=== PATIENT | female | born 1990 | race Caucasian/White ===

== ENCOUNTER 2016-12-18 16:50 | Inpatient (IN) | payer OTHER ==
[~2016-12-18] VITALS: Ht 152.4 cm; Wt 104.3 kg
[2016-12-18 18:07] LABS: ABSOLUTE BASOPHIL COUNT 0 /CUMM (0.0-0.2); ABSOLUTE EOSINOPHIL COUNT 0.3 /CUMM (0.0-0.7); ABSOLUTE GRANULOCYTE CT 7.3 /CUMM (1.4-6.5); ABSOLUTE LYMPH COUNT 1.5 /CUMM (1.2-3.4); ABSOLUTE MONOCYTE COUNT 0.8 /CUMM (0.10-0.60); BASOPHIL % 0.2 % (0.0-2.0); EOSINOPHIL % 2.7 % (0-5); GRANULOCYTE % 73.4 % (42.2-75.2); MEAN CORPUSCULAR HGB 27.3 PG (27.0-31.0); MEAN CORPUSCULAR HGB CONC 33.1 G/DL (33.0-37.0); MEAN CORPUSCULAR VOLUME 82.4 FL (81.0-99.0); MEAN PLATELET VOLUME 12.7 FL (7.4-10.4); PLATELET COUNT 139 /CUMM (130-400); RBC DISTRIBUTION WIDTH 16.1 % (11.5-14.5); RED BLOOD CELL CT 4.01 /CUMM (4.20-5.40); WHITE BLOOD CELL COUNT 9.9 /CUMM (4.8-10.8)
[2016-12-18] MEDS ORDERED: PRENATAL MULTI1 EAC2 PO (18:45)
[2016-12-18] MEDS ORDERED: ZOLOFT100 M1 PO (18:47)
[2016-12-18] MEDS ORDERED: SYNTHROID75 MCG PO (18:47)
[2016-12-18] MEDS ORDERED: CLARITIN10 M1 PO (18:48)
--- NOTE | 2016-12-18 19:57 | History & Physical ---
General Information and HPI MD Statement: I have seen and personally examined LUCRETIA ALEXANDRE and documented this H&P. The patient is a 26 year old female at [39] weeks and [6/7] days gestation who presented with a chief complaint of SROM TODAY @ 15:30 [.]. Source of Information: patient, old records Exam Limitations: no limitations History of Present Illness: 26-year-old with an MEGHANA by first trimester ultrasound of 12/19/2016 presents on 12/18/2016 at 39 weeks 6/7 days with the complaint of likely SROM. She was evaluated childbirth center temperature was positive. Patient was admitted for induction of labor. Issues for this #1 history of asthma. Inhaler #2 history of hypothyroidism. TFTs were normal #3 history of depression and anxiety patient initially was on Zoloft 150 mg she' s now tapered down to 100 daily. During this echo 1 anatomy at the ATU within normal limits. #4 subchorionic hemorrhage that resolved #5 history of MRSA in the past. Patient underwent 3 sets of cultures initially on 09/29/2016 the original site of the MRSA was her face followed by nasal and axillary inquiring cultures. On 2 separate other dates nasal and axillary and groin cultures were also negative. For total of 7 negative cultures #6 High Maternal BMI initial bmi 38 @ term wt 239 BMI 46.7 shoulder screen was neg @ 36 wks - but calculated today (using EFWT 0f 7#11oz @ 39 3/7 wks) shows intermediate risk for shoulder dystocia PT R Calc RISK AVGE POP CALC RISK shoulder dystocia w/ permanent neuro deficit 07/7380 shoulder dystocia w/ brachial plexus injury any duration 07/1017 she has a proven pelvis for 6#13 OZ (similar maternal BMI) no problem w/ delivery of shoulders we discussed her 2 options 1.) elective c/s vs 2.) attempted vaginal delivery. Pro's/Con's of both deliveries discussed. Pt states the prior suggested her baby would weigh more than her 6#13, Patient believes this baby is not significantly larger than her 1st baby. She is willing to try to deliver vaginally despite the shoulder screen that suggests intermediate risk of the shoulder dystocia. 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 Last Menstrual Period: Estimated Delivery Date: 12/19/2016 Past aircraft engine mechanic History: non-contributory Past Pregnancies Past Pregnancies: Date of Delivery: 10/31/2012 Gestational Age: 40 wk Length of Labor: 12 Weight: 6#13 Type of Delivery: vaginal Anesthesia: epidural Complications: none Medical History Blood Transfusion Hx: No Neurological: NONE EENT: allergies Cardiovascular: NONE Respiratory: NONE Gastrointestinal: NONE Hepatic: NONE Renal: NONE Musculoskeletal: NONE Psychiatric: anxiety, depression Endocrine: NONE Blood Disorders: NONE Cancer(s): NONE PRODUCT OWNER/Reproductive: NONE Surgical History Pertinent Surgical History: none (3), age 11 nasal cautery 06/2015 deviated septum surgery Past Family/Social History Psychosocial History Where do you live? Home Who Do You Live With? spouse, child, self Primary Language: Polish Smoking Status: Never Smoked ETOH Use: denies use Illicit Drug Use: denies illicit drug use Review of Systems Review of Systems: Nge for Cardiac Pulmonry GI complaints Exam & Diagnostic Data Last 24 Hrs of Vital Signs/I&O Aferbile BP 124/72 R 16 PO2 99% RA Obstetric Exam Wgt Gained During : 50 Pelvimetry: proven 6#13 Dilation (cm): 2 Effacement (%): 30 Station: -1 Membranes: SROM Fluid: clear Fundal Height (cm): 38 Multiple Gestation? No Contractions: irreg Infant #1 - FHR Baseline: 130 Category: 1 Estimated Weight: 7#11 Presentation: vtx Patient for Induction? Yes Richards Score Richards Score Response Value Cervix Position: mid-position 1 Cervix Consistency: soft 2 Cervix Effacement: 30-50% 1 Cervix Dilation: 1-2 cm 1 Cervix Station: -1 2 Total 7 Physical Exam General Appearance Alert, Oriented X3, Cooperative, No Acute Distress Skin No Significant Lesion Cardiovascular Regular Rate Lungs Normal Air Movement Abdomen Normal Bowel Sounds, Soft, No Tenderness, No Hepatospenomegaly, Uterine fundus 39 cm E F WT 7# 11 oz VTX, irreg contxns uterus nontender Neurological Normal Gait, Normal Speech Extremities No Tenderness/Swelling Reproductive (FEMALE) Normal female genitalia Labs Blood Type & Rh: B+ Antibody Screen: N Hct/Hgb & Platelets #1: 11.8/36.8 226,000 Hct/Hgb & Platelets #2: 11.2/37 167,000 Rubella: IMMUNE VDRL #1: N VDRL #2: N HbsAg: N HIV #1: N HIV #2 N 1 Hr P 3 Hr PG: N/A Group B Strep: N Initial Ultrasound: 05/28/2016 10 3/7 WKS - MEGHANA 12/19/2016 Anatomy Ultrasound: 08/03/2016 NL ANATOMY NL OVARIES Ultrasound for EFW: 12/08/2016 38 3/7 WKS E F WT 7#11oz Genetic Testing: NL 1ST TRIM SCREEN NL MAT T 21 NEG FOR NTD CF NEG Last 24 Hrs of Labs/Serge: Laboratory Tests 12/18/16 1740: CBC w Diff NO MAN DIFF REQ, RBC 4.01 L, MCV 82.4, MCH 27.3, RDW 16.1 H, MPV 12.7 H, Gran % 73.4, Lymphocytes % 15.5 L, Monocytes % 8.2, Eosinophils % 2.7, Basophils % 0.2, Absolute Granulocytes 7.3 H, Absolute Lymphocytes 1.5, Absolute Monocytes 0.8 H, Absolute Eosinophils 0.3, Absolute Basophils 0, PUBS MCHC 33.1 12/18/16 1708: Membrane Rupture POSITIVE, Urinalysis HEAVY H, Urine Color YEL, Urine Clarity CLDY H, Urine pH 7.5, Ur Specific [place] 1.015, Urine Protein 100 H, Urine Ketones NEG, Urine Nitrite NEG, Urine Bilirubin NEG, Urine Urobilinogen 0.2, Ur Leukocyte Esterase TRACE H, Ur Microscopic SEDIMENT EXAMINED, Urine RBC 5-10 H, Urine WBC 15-25 H, Ur Epithelial Cells MANY H, Urine Bacteria MANY H , Urine Hemoglobin MOD H, Urine Glucose NEG Assessment/Plan Assessment/Plan: IUP @ 39 6/7 WKS W/ SROM HI MAT BMI, PROVEN PELVIS FOR 6#13oz @ SIMILAR MATERNAL BMI NEG GEST DM SHOULDER SCREEN CALCULATED "INTERMEDIATE RISK" FOR POSSIBLE SHOULDER DYSTOCIA PT AND UNDERSTAND RISK, LIMITATIONS OF U/S - BABY MAY BE EITHER BIGGER OR SMALLER AND THE U/S CALCULATED EST F WT. HER "GUT FEELING" IS THAT THIS BABY IS A SIMILAR SIZE TO HER PREVIOUS CHILD, AND THAT DELIVERY DID NOT HAVE ANY PROBLEM WITH DELIVERY OF THE INFANT'S SHOULDERS. PT AND DECLINE THE OFFER FOR ELECTIVE C/S AND WISH TO TRY TO DELIVER VAGINALLY. NURSING STAFF AWARE AND SUPPORTIVE OF THE CLINICAL PLAN PLAN ADMIT IVF PITOCIN INDUCTION FOLLOW CAREFULLY BE PREPARED W/ ADEQUATE STAFF @ DELIVERY NO VACUUM IF PROLONGED 2ND STAGE ALPS IN LABOR Goldie RUSSO As Ranked By This Provider Problem List: 1. 2. BMI 45.0-49.9, adult 3. SROM (spontaneous rupture of membranes) Core Measures/Miscellaneous Venous Thromboembolism VTE Risk Factors: Obesity, / VTE Contraindications: Active Bleeding (FALL RISK) VTE Diagnosis: No Beta Itz Is Beta Itz a Home Med? No If No, Why Not? N/A Antibiotics Is Patient on Antibiotics? No Attending MD Review Statement Attending Statement Attending MD Statement: examined this patient, discussed with family, reviewed EMR data (avail), discussed w/nursing Attending Assessment/Plan: Goldie RUSSO MD
--- NOTE | 2016-12-18 22:36 | PN- OBGYN ---
Surgical Brief Attending Note Brief Attending Note: called to see pt 5 to 6 min prolonged decell down to the 60's - several variable decells before hand. recovery to NL FHR baseline with avge variabiity and accells. no tachysystole, NL Mat BP, raheem of cx: 3 to4 cm 80% ,- 2 station. ?? drop in FHR related to lauren amniotic fluid due to prior SROM plan attempt amnioinfusion discussed with pt and who agree. flori Casanova MD
--- NOTE | 2016-12-19 10:16 | PN- OBGYN ---
Surgical Brief Attending Note Brief Attending Note: OVERNIGHT FHR IMPROVED AFTER THE AMNIOINFUSION. @ 04:30 had recurrent prolonged unassociated decells. second amnioinfusion improved the FHR tracing No recurrent decells after the 2nd amnioinfusion @ 7:00 raheem cx now more 8-9 cm w/ swollen ant lip PT advised for C/S delivery Pt and agree Goldie Casanova MD
--- NOTE | 2016-12-19 10:32 | Operative Report ---
Operative/Inv Procedure Report Surgery Date: 12/19/16 Name of Procedure: Primary low cervical transverse section Pre-Operative Diagnosis: High maternal BMI of 46, arrest of dilation, borderline shoulder screen Post-Operative Diagnosis: Same, macrosomic 8 lbs. 8 oz., deflexed occiput posterior, occult cord prolapse, nuchal cord 1 Estimated Blood Loss: scant (550 ML) Surgeon/Taping Supervisor: KARAN MONTERROSO,PAYTON Hodges surgical physician assistant Poncho Vega MD Anesthesia: epidural Monitors: Blood pressure cuff EKG electrodes pulse oximeter IV Fluids: 850 ML crystalloid Urine Output: 300 ML Drains: [place] Specimens: None Complications: None Condition: Good Operative Indication: Arrest of dilation, maternal BMI of 46 Operative/Procedure Note Note: Patient was brought to the operating room and placed on the OR table in dorsal supine position with a right hip wedge. Time was discussed by the team and agreed upon. Due to the patient's cervix for an allergy she was given IV gentamicin and clindamycin preoperatively. heart rate was 140s in the OR without deceleration. In labor at the [place] catheter and pneumatic compression boots at [place] placed on the patient. Epidural was topped up by anesthesia and patient was then prepped and draped in usual sterile fashion. After evidence of an adequate epidural block, transverse incision was made in the skin 2 fingerbreadths above the symphysis. Transverse incision carried down the fascia. Fascia incised transversely. Fascia sharply divided in the midline. Rectus muscles identified divided in the midline and manually . The parietal peritoneum was identified elevated and entered bluntly. This was divided transversely. The utero vesicular fold of the bladder peritoneum was identified and divided transversely. The bladder was reflected inferiorly. Transverse incision was made in the low uterine segment, the uterine cavity was entered bluntly. Uterine incision was extended the right left sides manually. Once the uterine incision was opened occult loop of cord prolapse of the uterine incision and could not be easily reduced. Hand was introduced into the uterine cavity and a deflexed occiput posterior presentation of the male infant was carefully flexed and the 's head was brought to the abdominal wall incision. Mouth and nasopharynx bulb suctioned on the intra-abdominal wall, nuchal cord 1 was easily reduced, and the rest of the 's body was delivered without complication at 08:00 on 12/19/2016. Umbilical cord was doubly clamped cut and the infant was handed to the pediatric team for evaluation. Live viable male infant 8 lbs. 8 oz. Apgars 9, 9, and 9. Cord pH was 7.21. Placenta was initially spontaneously and then manually removed from the uterine cavity. Normal configuration of the placenta normal 3 vessel cord. Uterus was exteriorized draped with wet lap pad. Uterine cavity wiped clean with a lap pad. The uterine incision was inspected and found to be without significant low cervical extension. Uterine incision was closed then with 2 separate segments of suture. First segment of sutures running locking. Second segment of suture was running imbricating suture. At completion of the uterine closure there was good hemostasis. Normal anatomic configuration of the uterus fallopian tubes and ovaries. The pelvis was then irrigated and the irrigation fluid was aspirated. Good hemostasis continued. Parietal peritoneum was closed with running suture. Muscle layer inspected found to be dry. Muscles reapproximated midline with horizontal mattress suture. Fascia inspected found to be dry fascia closed with 2 separate segments running intermittently locking suture. Subcutaneous tissue was irrigated and the irrigation fluid was aspirated. Subcutaneous tissue was closed plain gut. Any small bleeders were managed with unipolar cautery before closure. Skin edges were then reapproximated with subcuticular stitch of by us in. Completion procedure sponge needle and spent counseling were correct 4. Pressure dressing was applied to the intra-abdominal wall. Bimanual exam shows a small portion, 3 x 4 cm, of amniotic membrane noted in the upper vaginal vault. There was no retained tissue in the low segment and no significant blood or clot in the low segment or upper vaginal vault. There was excellent hemostasis also in the vaginal area at end of procedure. Findings: With opening of the uterus, there was a loop of cord that prolapsed to the uterine wall incision. There was also a loose nuchal cord 1. was positioned in a deflexed occiput posterior presentation. Time of delivery was 08:00 on 12/19/2016. weight of a live viable male infant 8 lbs. 8 oz. Apgars 9, 9, and 9 cord pH was 7.21. Normal placenta 3 vessel cord. Normal uterus tubes and ovaries Discharge Disposition: CC: KARAN MONTERROSO,PAYTON Hodges
--- NOTE | 2016-12-19 10:33 | Labor & Delivery Summary ---
Delivery Summary Section: Section: primary Indication: Progressive dilation, maternal BMI of 46 intermediate shoulder dystocia screen risk Anesthesia: Epidural Episiotomy/Lacerations: Episiotomy/Lacerations: none Placenta: Placenta: spontanteous, normal, 3 vessel, occult cord prolapse noted upon entry into the uterine cavity, also loose nuchal cord 1 Anesthesia: epidural Cord PH Value: 7.21 Baby's Weight: Live viable male infant 8 lbs. 8 oz. Apgars - 1 Min: 9 Apgars - 5 Min: 9
[2016-12-20 10:11] LABS: ABSOLUTE BASOPHIL COUNT 0 /CUMM (0.0-0.2); ABSOLUTE EOSINOPHIL COUNT 0.1 /CUMM (0.0-0.7); ABSOLUTE GRANULOCYTE CT 13.6 /CUMM (1.4-6.5); ABSOLUTE LYMPH COUNT 1.2 /CUMM (1.2-3.4); BASOPHIL % 0.2 % (0.0-2.0); EOSINOPHIL % 0.9 % (0-5); GRANULOCYTE % 85.5 % (42.2-75.2); HEMATOCRIT 29.7 % (37-47); MEAN CORPUSCULAR HGB 27.1 PG (27.0-31.0); MEAN CORPUSCULAR HGB CONC 32.5 G/DL (33.0-37.0); MEAN CORPUSCULAR VOLUME 83.4 FL (81.0-99.0); MEAN PLATELET VOLUME 11.7 FL (7.4-10.4); PLATELET COUNT 120 /CUMM (130-400); RBC DISTRIBUTION WIDTH 16.2 % (11.5-14.5); RED BLOOD CELL CT 3.57 /CUMM (4.20-5.40)
[2016-12-20 10:26] LABS: WHITE BLOOD CELL COUNT 15.9 /CUMM (4.8-10.8)
--- NOTE | 2016-12-20 16:22 | PN- Post Delivery/GYN ---
Subjective Subjective: RESTING QUIETLY- PAIN CONTROLLED BY PO PAIN MEDS, TOLERATING A REGULAR DIET Review of Systems: NO CARDIAC PULMONARY GI COMPLAINTS Objective Last 24 Hrs of Vital Signs/I&O AFEBRILE VSS Vital Signs Date Time Temp Pulse Resp B/P B/P Pulse O2 O2 Flow FiO2 Mean Ox Delivery Rate 12/19 2142 98 Room Air Room Air Physical Exam General Appearance Alert, Oriented X3, Cooperative, No Acute Distress Skin No Significant Lesion Cardiovascular Regular Rate Lungs Normal Air Movement Abdomen Normal Bowel Sounds, Soft, No Tenderness, No Hepatospenomegaly, UTERINE FUNDUS FIRM NONTENDER MIDLINE, 2 FB BELOW UMBILICUS INCISION CLEAN DRY INTACT Neurological Normal Gait, Normal Speech Extremities No Tenderness/Swelling Pelvic (FEMALE) Appearance Normal, AVGE LOCHIA Current Medications: Current Medications Sig/Consuelo Start time Last Medication Dose Route Stop Time Status Admin Acetaminophen 1,000 MG Q6P PRN 12/19 0830 AC N/A 1 UNIT IV Albuterol Sulfate 3 ML Q4P PRN 12/19 214 AC 12/19 INH 2141 Albuterol Sulfate 2 PUF Q4 PRN 12/19 2100 AC INH Diphenhydramine HCl 25 MG Q6P PRN 12/19 0945 AC IV Docusate Sodium 100 MG AT BEDTIME PRN 12/19 0815 AC PO Enoxaparin Sodium 50 MG DAILY@12/19 AC 12/19 SC 2029 Hydroxyzine HCl 100 MG AT BEDTIME NEED.. 12/20 0000 AC PO Ibuprofen 800 MG Q6P PRN 12/19 0915 AC 12/20 PO 1429 Ketorolac 30 MG .STK-MED ONE 12/20 0232 DC Tromethamine IM 12/20 0233 Ketorolac 30 MG Q6P PRN 12/19 0945 DC 12/19 Tromethamine IV 12/20 0944 2030 Ketorolac 30 MG Q6H 12/19 0800 DC 12/20 Tromethamine IV 12/20 0201 0230 Lactated Ringer's 1,000 ML Q8H 12/19 0915 DC 12/19 IV 1642 Levothyroxine Sodium 0.075 MG DAILY AC 12/20 0700 AC 12/20 PO 0615 Loratadine 10 MG DAILY 12/19 2199 DC PO Loratadine 10 MG DAILY 12/19 2199 AC 12/19 PO 2247 Magnesium Hydroxide 30 ML DAILY NEEDED PRN 12/19 914 AC PO Metoclopramide HCl 10 MG Q6P PRN 12/19 944 AC IV Naloxone HCl 0.2 MG DAILY PRN 12/19 944 AC IV Oxycodone/ 1 TAB Q4P PRN 12/19 914 AC Acetaminophen PO Oxycodone/ 2 TAB Q4P PRN 12/19 914 AC Acetaminophen PO Oxytocin 20 UNITS Q8H 12/19 914 DC 12/19 Lactated Ringer's 1,000 ML IV 12/19 1714 0900 Sertraline HCl 100 MG DAILY 12/19 2199 DC PO Sertraline HCl 100 MG DAILY 12/19 2199 AC 12/19 PO 224 Last 24 Hrs of Labs/Serge: Laboratory Tests 12/20/16814: CBC w Diff MAN DIFF ORDERED, RBC 3.57 L, MCV 83.4, MCH 27.1, RDW 16.2 H, MPV 11.7 H, Gran % 85.5 H, Lymphocytes % 7.3 L, Monocytes % 6.1, Eosinophils % 0.9, Basophils % 0.2, Absolute Granulocytes 13.6 H, Absolute Lymphocytes 1.2, Absolute Eosinophils 0.1, Absolute Basophils 0, Platelet Estimate DECREASED, Anisocytosis 1+, PUBS MCHC 32.5 L Assessment/Plan Assessment/Plan STABLE POD#1 INTERESTED IN CIRC FOR HER SON TOMORROW REG DIET PO PAIN MEDS FULL AMBULATION Problem List: 1. BMI 45.0-49.9, adult 2. SROM (spontaneous rupture of membranes) 3. Arrest of dilation, delivered, current hospitalization 4. Delivered by section 5. Term of male 6. Anemia due to blood loss, acute Attending MD Review Statement Attending Statement Attending MD Statement: examined this patient, discussed with family, reviewed EMR data (avail), discussed with nursing Attending Assessment/Plan: Goldie RUSSO MD
--- NOTE | 2016-12-21 08:35 | PN- OBGYN ---
Surgical Brief Attending Note Brief Attending Note: NO COMPLAINTS. DOING WELL. AMBULATING , VOIDING, TOLERATING PAIN AND PO. NL LOCHIA. +NURSING VSSAF FF@U INC: C/D/I EXT: NO CALF TENDERNESS, 2+ PEDAL EDEMA B/L Laboratory Tests 12/20/16 0815: CBC w Diff MAN DIFF ORDERED, RBC 3.57 L, MCV 83.4, MCH 27.1, RDW 16.2 H, MPV 11.7 H, Gran % 85.5 H, Lymphocytes % 7.3 L, Monocytes % 6.1, Eosinophils % 0.9, Basophils % 0.2, Absolute Granulocytes 13.6 H, Absolute Lymphocytes 1.2, Absolute Eosinophils 0.1, Absolute Basophils 0, Platelet Estimate DECREASED, Anisocytosis 1+, PUBS MCHC 32.5 L 12/18/16 1740: CBC w Diff NO MAN DIFF REQ, RBC 4.01 L, MCV 82.4, MCH 27.3, RDW 16.1 H, MPV 12.7 H, Gran % 73.4, Lymphocytes % 15.5 L, Monocytes % 8.2, Eosinophils % 2.7, Basophils % 0.2, Absolute Granulocytes 7.3 H, Absolute Lymphocytes 1.5, Absolute Monocytes 0.8 H, Absolute Eosinophils 0.3, Absolute Basophils 0, PUBS MCHC 33.1 12/18/16 1708: Membrane Rupture POSITIVE, Urinalysis HEAVY H, Urine Color YEL, Urine Clarity CLDY H, Urine pH 7.5, Ur Specific [place] 1.015, Urine Protein 100 H, Urine Ketones NEG, Urine Nitrite NEG, Urine Bilirubin NEG, Urine Urobilinogen 0.2, Ur Leukocyte Esterase TRACE H, Ur Microscopic SEDIMENT EXAMINED, Urine RBC 5-10 H, Urine WBC 15-25 H, Ur Epithelial Cells MANY H, Urine Bacteria MANY H , Urine Hemoglobin MOD H, Urine Glucose NEG Microbiology 12/19 0642 URINE ROUT: Urine Culture - CAN Cancelled: Cancelled via OE: STAT A/P POD 2. S/P PRIMARY LTCS FOR ARREST OF DILATION/OP. PLAN ROUTINE POSTOP CARE. DESIRES CIRC. MOTHER COUNSELED. MILD ANEMIA. WILL REPLACE UPON DISCHARGE.
[2016-12-22] MEDS ORDERED: IBUPROFEN800 M1 PO (09:51)
[2016-12-22] MEDS ORDERED: PERCOCET 5-3251 EACH PO (09:51)
--- NOTE | 2016-12-22 09:56 | PN- Post Delivery/GYN ---
Subjective Subjective: doing well Review of Systems Constitutional: Denies: chills, fever. Respiratory: Denies: cough. Neurological/Psychological: Denies: anxiety, depressed. Objective Last 24 Hrs of Vital Signs/I&O vss Physical Exam General Appearance Alert, Oriented X3, Cooperative, No Acute Distress Cardiovascular Regular Rate Lungs Clear to Auscultation Abdomen Soft, No Tenderness, fundus firm, incision clean and dry Neurological Reflexes 2+ Pelvic (FEMALE) locia sero sanganous Current Medications: Current Medications Sig/Consuelo Start time Last Medication Dose Route Stop Time Status Admin Acetaminophen 1,000 MG Q6P PRN 12/19 0930 AC N/A 1 UNIT IV Albuterol Sulfate 3 ML Q4P PRN 12/19 2145 AC 12/19 INH 2141 Albuterol Sulfate 2 PUF Q4 PRN 12/19 2100 AC INH Diphenhydramine HCl 25 MG Q6P PRN 12/19 0945 AC IV Docusate Sodium 100 MG AT BEDTIME PRN 12/19 0815 AC 12/20 PO 2233 Enoxaparin Sodium 50 MG DAILY@12/19 12/21 SC 2016 Hydroxyzine HCl 100 MG AT BEDTIME NEED.. 12/20 0000 AC PO Ibuprofen 800 MG .STK-MED ONE 12/21 2002 DC PO 12/21 2003 Ibuprofen 800 MG .STK-MED ONE 12/21 1315 DC PO 12/21 1316 Ibuprofen 800 MG Q6P PRN 12/19 0915 AC 12/22 PO 0218 Levothyroxine Sodium 0.075 MG DAILY AC 12/20 0700 AC 12/22 PO 0624 Loratadine 10 MG 12/21 2200 AC 12/21 PO 2307 Magnesium Hydroxide 30 ML DAILY NEEDED PRN 12/19 0915 AC PO Metoclopramide HCl 10 MG Q6P PRN 12/19 0945 AC IV Naloxone HCl 0.2 MG DAILY PRN 12/19 0845 AC IV Oxycodone/ 1 TAB Q4P PRN 12/19 0815 AC 12/22 Acetaminophen PO 0218 Oxycodone/ 2 TAB Q4P PRN 12/19 0815 AC Acetaminophen PO Sertraline HCl 100 MG 12/21 2200 AC 12/21 PO 2308 Assessment/Plan Assessment/Plan POD #3 vss afebrile Problem List: 1. Delivered by section Attending MD Review Statement Attending Statement Attending MD Statement: examined this patient, discussed with family, discussed with nursing
--- NOTE | 2016-12-23 13:27 | Discharge Summary ---
Visit Information Visit Dates Admission Date: 12/18/16 Discharge Date: 12/22/16 Hospital Course Course Attending Physician: KARAN MONTERROSO,AMANDA Hodges Primary Care Physician: NAHEED MONTERROSO,[facility] Course: 26-year-old with an MEGHANA by first trimester ultrasound of 12/19/2016 presents on 12/18/2016 at 39 weeks 6/7 days with the complaint of likely SROM. She was evaluated childbirth center temperature was positive. Patient was admitted for induction of labor. Issues for this #1 history of asthma. Inhaler #2 history of hypothyroidism. TFTs were normal Synthroid daily #3 history of depression and anxiety patient initially was on Zoloft 150 mg she' s now tapered down to 100 daily. During this echo 1 anatomy at the ATU within normal limits. #4 subchorionic hemorrhage that resolved #5 history of MRSA in the past. Patient underwent 3 sets of cultures initially on 09/29/2016 the original site of the MRSA was her face followed by nasal and axillary inquiring cultures. On 2 separate other dates nasal and axillary and groin cultures were also negative. For total of 7 negative cultures #6 High Maternal BMI initial bmi 38 @ term wt 239 BMI 46.7 shoulder screen was neg @ 36 wks - but calculated today (using EFWT 0f 7#11oz @ 39 3/7 wks) shows intermediate risk for shoulder dystocia PT R Calc RISK AVGE POP CALC RISK shoulder dystocia w/ permanent neuro deficit 07/7380 shoulder dystocia w/ brachial plexus injury any duration 8 she has a proven pelvis for 6#13 OZ (similar maternal BMI) no problem w/ delivery of shoulders we discussed her 2 options 1.) elective c/s vs 2.) attempted vaginal delivery. Pro's/Con's of both deliveries discussed. Pt states the prior suggested her baby would weigh more than her 6#13, Patient believes this baby is not significantly larger than her 1st baby. She is willing to try to deliver vaginally despite the shoulder screen that suggests intermediate risk of the shoulder dystocia. @ 22:00 5 to 6 min prolonged decell down to the 60's - several variable decells before hand. recovery to NL FHR baseline with avge variabiity and accells. no tachysystole, NL Mat BP, raheem of cx: 3 to4 cm 80% ,- 2 station. ?? drop in FHR related to less amniotic fluid due to prior SROM plan attempt amnioinfusion discussed with pt and who agree. OVERNIGHT FHR IMPROVED AFTER THE AMNIOINFUSION. @ 04:30 had recurrent prolonged unassociated decells. second amnioinfusion improved the FHR tracing No recurrent decells after the 2nd amnioinfusion @ 7:00 raheem cx now more 8-9 cm w/ swollen ant lip PT advised for C/S delivery Pt and agree To the patient's cephalosporin allergy, she was given preop antibiotics of clindamycin and gentamicin. With opening of the uterus, there was a loop of cord that prolapsed to the uterine wall incision. There was also a loose nuchal cord 1. Infant was positioned in a deflexed occiput posterior presentation. Time of delivery was 08:00 on 12/19/2016. weight of a live viable male 8 lbs. 8 oz. Apgars 9, 9, and 9 cord pH was 7.21. Normal placenta 3 vessel cord. Normal uterus tubes and ovaries Postoperatively patient had a benign course. She was started on Lovenox 12 hours following delivery was maintained on this daily until day of discharge. Patient remained afebrile during her hospital time. Her incision remained clean dry and intact without erythema and induration or drainage. Her pain was controlled with by mouth pain medications and she was ambulating without difficulty. Her admission labs showed her hemoglobin 10.9 hematocrit 30 3. count 139,000. Postop day #1 hemoglobin 9.7 hematocrit 29.7 and platelet count showed a borderline gestational thrombocytopenia that was stable at 120,000 By the third postoperative day patient was ready to be discharged home. Complications: None Allergies: Coded Allergies: Cephalosporins (Intermediate, RASH 12/18/16) latex (Intermediate, HIVES 10/16/15) Disposition Summary Disposition Principal Diagnosis: Term live child male infant delivered. Additional Diagnosis: #1 Arrest of dilation and nonreassuring heart rate tracing necessitating primary low cervical transverse section. #2 BMI of 46.7, patient was maintained with Lovenox during her hospital stay following delivery. #3 history of asthma maintain on inhaler when necessary #4 hypothyroidism stable on Synthroid #5 history of present stable on Zoloft 100 daily #6 gestational thrombocytopenia platelet count 120,000 this will be rechecked at 6 week visit Discharge Disposition: home or self care Discharge Instructions General Discharge Information Code Status: Full Code Patient's Diet: Regular Patient's Activity: Self-limited patient will be at full activities by 6 weeks on delivery Follow-Up Instructions/Appts: Patient was seen postoperatively several days after delivery and the nursing scheduled childbirth center. She'll be otherwise seen at the office 2 and 6 weeks after delivery Medications at Discharge Discharge Medications: Continue taking these medications: Pnv No.122/Iron/Folic Acid ( Multi Tablet) 27 MG IRON-800 MCG TABLET 1 Tablet ORAL DAILY Levothyroxine Sodium (Synthroid) 75 MCG TABLET 1 Tablet ORAL DAILY Sertraline HCl (Zoloft) 100 MG TABLET 1 Tablet ORAL DAILY Loratadine (Claritin) 10 MG TABLET 1 Tablet ORAL DAILY Start taking the following new medications: Ibuprofen (Ibuprofen) 800 MG TABLET 800 Milligram ORAL EVERY SIX HOURS NEEDED as needed for UTERINE CRAMPING Qty = 90 No Refills Comments: Last Taken:12/22/16 Time:10:00am Oxycodone HCl/Acetaminophen (Percocet 5-325 MG Tablet) 5 MG-325 MG TABLET 1 Tablet ORAL EVERY 4 HOURS NEEDED as needed for PAIN SCALE 4-6 (MODERATE ) Qty = 30 No Refills Copies To: KARAN MONTERROSO,AMANDA Hodges Attending MD Review Statement Documenting Attending: AMANDA CASANOVA MD Other Findings: Amanda Casanova MD ending dictation
== END 2016-12-22 11:18 | DRG 765 ==
LOC: CBCO 16:50 → GNO 17:27
PROVIDERS: ADMIT Obstetrics & Gynecology
PROC: 3E0E7GC Introduction of Other Therapeutic Substance into Products of Conception, Via Natural or Artificial Opening (ICD-10-PCS; 2016-12-18)
PROC: 3E033VJ Introduction of Other Hormone into Peripheral Vein, Percutaneous Approach (ICD-10-PCS; 2016-12-18)
PROC: 10D00Z1 Extraction of Products of Conception, Low, Open Approach (ICD-10-PCS; principal; 2016-12-19)
DX: O36.63X0 Maternal care for excessive fetal growth, third trimester, not applicable or unspecified (principal); D62 Acute posthemorrhagic anemia; O64.0XX0 Obstructed labor due to incomplete rotation of fetal head, not applicable or unspecified; O99.214 Obesity complicating childbirth; Z68.42 Body mass index [BMI] 45.0-49.9, adult; O69.0XX0 Labor and delivery complicated by prolapse of cord, not applicable or unspecified; O69.81X0 Labor and delivery complicated by cord around neck, without compression, not applicable or unspecified; Z3A.39 39 weeks gestation of pregnancy; Z37.0 Single live birth; O99.02 Anemia complicating childbirth; O62.1 Secondary uterine inertia; O76 Abnormality in fetal heart rate and rhythm complicating labor and delivery; J45.909 Unspecified asthma, uncomplicated; O99.284 Endocrine, nutritional and metabolic diseases complicating childbirth; E03.9 Hypothyroidism, unspecified; O99.344 Other mental disorders complicating childbirth; F41.8 Other specified anxiety disorders; O99.52 Diseases of the respiratory system complicating childbirth
CPT/HCPCS: GNOP; GNOS; 36415; 81001; 84112; 87086; J1580; J1650; J1885; J2210; J3490; J7120